=== PATIENT | female | born 1965 | race Caucasian/White ===

== ENCOUNTER → 2021-08-27 15:15 | Outpatient (CLI) | payer MEDICAID, SELFPAY ==
[2021-08-27 17:53] LABS: Ferritin 20 ng/mL (8-252)
[2021-08-29 12:29] LABS: Thyroid Peroxidase AB 293 IU/mL (0-34)
[2021-08-29 19:11] LABS: Anti-Nuclear Antibody Test Negative (.)
== END ==
PROVIDERS: Referring Provider Dermatology Pediatric Dermatology; Visit Provider Dermatology Pediatric Dermatology
DX: L21.8 Other seborrheic dermatitis (principal); L64.8 Other androgenic alopecia; L65.9 Nonscarring hair loss, unspecified
CPT/HCPCS: 36415; 82728; 86038; 86376